=== PATIENT | female | born 1930 | race Caucasian/White ===

== ENCOUNTER → 2020-11-03 | Outpatient (CLI) | payer MEDICARE, OTHER ==
[~2020-11-03] MED LIST: ASPIRIN 81M81 MG/TA2 PO; ATORVASTATIN; CARDIZEM CD 30300 MG PO; CARDURA 2MG2 MG PO; COZAAR100 MG PO; DILTIAZEM240 M1 PO; GLUCOSAMINE CHO1 CAP PO; HCTZ; HCTZ 25MG TAB25 MG PO; IRON65 M1 PO; KLOR-CON M2020 MEQ PO; LIPITOR20 MG PO; PERCOCET 325 MG1 TA2 PO; POTASSIUM20 MEQ PO; TYLENOL 500MG500 MG PO; TYLENOL PM EXTR1 CAP PO; VITAMIN D31000 IU PO
== END ==
LOC: COL.VAS 12:02
DX: I65.23 Occlusion and stenosis of bilateral carotid arteries (principal)